=== PATIENT | male | born 1965 | race Two or more races ===

== ENCOUNTER 2025-02-02 14:06 | Emergency (ER) | payer MEDICARE ==
[~2025-02-02] VITALS: Ht 193 cm; Wt 86.2 kg
[2025-02-02 14:41] LABS: CALCIUM, SERUM 8.6 mg/dL (8.5-10.1); CARBON DIOXIDE 24 mmol/L (21-32); CHLORIDE 109 mmol/L (98-107); CREATININE 1.1 mg/dL (0.6-1.3); GLUCOSE 125 mg/dL (74-106); POTASSIUM 4.1 mmol/L (3.5-5.1); SODIUM SERUM 145 mmol/L (136-145); UREA NITROGEN, BLOOD 51 mg/dL (7-18)
[2025-02-02 14:50] LABS: BASOPHILS # (AUTO) 0.1 K/uL (0.0-0.2); BASOPHILS % (AUTO) 0.8 % (0.0-2.0); EOSINOPHILS % (AUTO) 0.3 % (0.0-6.0); HEMATOCRIT 27 % (39-51); LYMPHOCYTES # (AUTO) 0.7 K/uL (0.8-4.8); LYMPHOCYTES % (AUTO) 6.9 % (20.0-44.0); MEAN CORPUSCULAR HEMOGLOBIN 28 PG (26.0-33.0); MEAN CORPUSCULAR HGB CONC 33 g/dl (31.0-36.0); MEAN CORPUSCULAR VOLUME 84 fL (80-96); MONOCYTES # (AUTO) 0.3 K/uL (0.1-1.30); MONOCYTES % (AUTO) 3.2 % (2.0-12.0); NEUTROPHILS % (AUTO) 88.8 % (43.0-81.0); PLATELET COUNT (AUTO) 255 K/uL (150-450); RED BLOOD CELL COUNT(AUTO) 3.22 MIL/uL (4.5-6.0); WHITE BLOOD COUNT (AUTO) 10.2 K/uL (4.3-11.0)
[2025-02-02] MEDS ORDERED: FERR325T24 PO (17:18)
[2025-02-02] MEDS ORDERED: ASCO500C18 PO (17:18)
[2025-02-02 17:54] VITALS: BP 102/65; TEMP 98.5; O2SAT 99
== END 2025-02-02 17:55 | disposition home or self-care (01) ==
LOC: ER 14:09
DX: R07.89 Other chest pain (principal); D64.9 Anemia, unspecified; Z60.2 Problems related to living alone; Z88.0 Allergy status to penicillin; Z79.899 Other long term (current) drug therapy
CPT/HCPCS: 36415; 71045-TC; 80048-TC; 84484-TC; 85025-TC

== ENCOUNTER 2025-02-05 21:23 | Inpatient (IN) | payer MEDICARE ==
[~2025-02-05] VITALS: Ht 175.3 cm; Wt 82.6 kg
[~2025-02-05 21:23] MED LIST: ASCO500C18 PO; FERR325T24 PO
[2025-02-05 23:28] LABS: BASOPHILS % (AUTO) 0.6 % (0.0-2.0); EOSINOPHILS % (AUTO) 1.3 % (0.0-6.0); HEMATOCRIT 21 % (39-51); HEMOGLOBIN 6.7 g/dL (13.5-17.5); LYMPHOCYTES # (AUTO) 0.5 K/uL (0.8-4.8); LYMPHOCYTES % (AUTO) 14.2 % (20.0-44.0); MEAN CORPUSCULAR HEMOGLOBIN 28 PG (26.0-33.0); MEAN CORPUSCULAR HGB CONC 33 g/dl (31.0-36.0); MEAN CORPUSCULAR VOLUME 85 fL (80-96); MONOCYTES # (AUTO) 0.1 K/uL (0.1-1.30); MONOCYTES % (AUTO) 3.9 % (2.0-12.0); NEUTROPHILS # (AUTO) 2.8 K/uL (1.8-8.9); PLATELET COUNT (AUTO) 210 K/uL (150-450); RED BLOOD CELL COUNT(AUTO) 2.42 MIL/uL (4.5-6.0); RED CELL DISTRIBUTION WIDTH 17.5 % (11.5-15.0); WHITE BLOOD COUNT (AUTO) 3.5 K/uL (4.3-11.0)
[2025-02-05 23:36] LABS: CALCIUM, SERUM 7.9 mg/dL (8.5-10.1); POTASSIUM 3.5 mmol/L (3.5-5.1)
[2025-02-05 23:42] LABS: ALBUMIN 3.2 g/dL (3.4-5.0); BILIRUBIN,TOTAL 0.2 mg/dL (0.2-1.0); TOTAL PROTEIN, SERUM 5.9 g/dL (6.4-8.2)
[2025-02-05] MEDS: IV NS 0.9% 1,000 ML IV ONE (23:43)
[2025-02-06] VITALS (9 sets, daily range): BP systolic 90–109; BP diastolic 56–68; TEMP 97.1–98.6; O2SAT 99–100
[2025-02-06] LABS: ANISOCYTOSIS 1+; EOSINOPHILS % (MANUAL) 1 % (0-4); LYMPHOCYTES % (MANUAL) 10 % (16-48); MONOCYTES % (MANUAL) 7 % (0-11.0); NEUTROPHILS % (MANUAL) 82 (42-76); PLATELET ESTIMATE ADEQUATE
[2025-02-06] MEDS ORDERED: PANTOPRAZOLE 40 MG VIAL ONE (00:19)
[2025-02-06] MEDS: PANTOPRAZOLE 40 MG VIAL IV ONE (00:29)
[2025-02-06 01:05] LABS: INR 1.08 (0.91-1.10); PARTIAL THROMBOPLASTIN TIME 27.9 SEC (24.3-34.3); PROTHROMBIN TIME 11.4 SECS (9.2-11.1)
[2025-02-06] MEDS ORDERED: LORAZEPAM 1 MG TABLET PO PRN (01:30)
[2025-02-06] MEDS ORDERED: HYDROCODONE/APAP 5/325MG TABLET PO PRN (01:30)
[2025-02-06] MEDS ORDERED: ONDANSETRON HCL/PF 4 MG/2 ML VIAL IVP PRN (01:30)
[2025-02-06] MEDS ORDERED: ZOLPIDEM TARTRATE 5 MG TABLET PO PRN (01:30)
[2025-02-06] MEDS ORDERED: Z GUARD REMEDY 4 OZ OINT TP PRN (01:30)
[2025-02-06 01:32] LABS: APPEARANCE,URINE CLEAR (CLEAR); BILIRUBIN,URINE NEGATIVE (NEGATIVE); BLOOD, URINE NEGATIVE Ery/uL (NEGATIVE); COLOR,URINE YELLOW (YELLOW); KETONES,URINE TRACE mg/dL (NEGATIVE); LEUKOCYTE ESTERASE ,URINE NEGATIVE (NEGATIVE); NITRITE, URINE NEGATIVE (NEGATIVE); PH,URINE 5.5 (5.0-8.0); PROTEIN,URINE NEGATIVE (NEGATIVE); UGLUCOSE NEGATIVE (NEGATIVE); UROBILINOGEN,URINE 0.2 EU/dL (0.2)
[2025-02-06 01:40] LABS: AMPHETAMINE, URINE NEGATIVE (NEGATIVE); BARBITURATE, URINE NEGATIVE (NEGATIVE); BENZODIAZEPINE, URINE NEGATIVE (NEGATIVE); CANNABINOID, URINE NEGATIVE (NEGATIVE); COCCAINE, URINE NEGATIVE (NEGATIVE); OPIATE, URINE NEGATIVE (NEGATIVE); PHENCYCLIDINE SCREEN,URINE NEGATIVE (NEGATIVE)
[2025-02-06 01:52] LABS: ADD URINE CULTURE NO; BACTERIA,URINE Rare /HPF (None Seen); RBC,URINE 0-2 /HPF (0-2); SQUAMOUS EPITHELIAL CELL,UR Few /HPF (None Seen); WBC,URINE 0-2 /HPF (0-3)
[2025-02-06] MEDS: IV NS 0.9% 1,000 ML IV PRN (03:40)
[2025-02-06] MEDS: PANTOPRAZOLE 40 MG VIAL IV SCH (09:34)
[2025-02-06] MEDS ORDERED: PANT40TA49 PO (10:00)
[2025-02-06] MEDS ORDERED: ACET-1951 PO (10:00)
[2025-02-06] MEDS ORDERED: SUCR1TAB PO (10:00)
[2025-02-06] MEDS ORDERED: SERT25TA5 PO (10:00)
[2025-02-06] MEDS ORDERED: ACET500C4 PO (10:00)
[2025-02-06] MEDS ORDERED: IBUP-2413 PO (10:00)
[2025-02-06] MEDS ORDERED: FERR325T24 PO (10:00)
[2025-02-06] MEDS: CHLORDIAZEPOXIDE HCL 25 MG CAPSULE PO SCH (10:14)
[2025-02-06] MEDS: IV NS 0.9% 1,000 ML IV SCH (11:30)
[2025-02-06 18:59] LABS: HEMOGLOBIN 8.1 g/dL (13.5-17.5)
[2025-02-07 02:22] LABS: HEMOGLOBIN 7.9 g/dL (13.5-17.5)
[2025-02-07 04:00] VITALS: BP 109/62; TEMP 97.9; O2SAT 98
[2025-02-07 06:35] LABS: INR 1.08 (0.91-1.10); PARTIAL THROMBOPLASTIN TIME 29.1 SEC (24.3-34.3); PROTHROMBIN TIME 11.4 SECS (9.2-11.1)
[2025-02-07 06:42] LABS: CREATININE 0.9 mg/dL (0.6-1.3); MAGNESIUM 1.8 mg/dL (1.8-2.4); PHOSPHORUS 3.4 mg/dL (2.5-4.9); POTASSIUM 3.5 mmol/L (3.5-5.1)
[2025-02-07 06:51] LABS: BASOPHILS % (AUTO) 0.5 % (0.0-2.0); EOSINOPHILS # (AUTO) 0.2 K/uL (0.0-0.7); EOSINOPHILS % (AUTO) 3.4 % (0.0-6.0); HEMATOCRIT 25 % (39-51); HEMOGLOBIN 8.5 g/dL (13.5-17.5); LYMPHOCYTES # (AUTO) 0.7 K/uL (0.8-4.8); LYMPHOCYTES % (AUTO) 14.6 % (20.0-44.0); MEAN CORPUSCULAR HEMOGLOBIN 29 PG (26.0-33.0); MEAN CORPUSCULAR HGB CONC 34 g/dl (31.0-36.0); MEAN CORPUSCULAR VOLUME 86 fL (80-96); MONOCYTES # (AUTO) 0.4 K/uL (0.1-1.30); MONOCYTES % (AUTO) 7.9 % (2.0-12.0); NEUTROPHILS # (AUTO) 3.7 K/uL (1.8-8.9); NEUTROPHILS % (AUTO) 73.6 % (43.0-81.0); PLATELET COUNT (AUTO) 215 K/uL (150-450); RED BLOOD CELL COUNT(AUTO) 2.95 MIL/uL (4.5-6.0); RED CELL DISTRIBUTION WIDTH 16.7 % (11.5-15.0); WHITE BLOOD COUNT (AUTO) 5.1 K/uL (4.3-11.0)
[2025-02-07 08:00] VITALS: BP 115/60; TEMP 98.1; O2SAT 98
[2025-02-07] MEDS: SERTRALINE HCL 25 MG TABLET PO SCH (09:00)
[2025-02-07] MEDS: SUCRALFATE 1 G TABLET PO SCH (09:00)
[2025-02-07] MEDS: FERROUS SULFATE (325 MG) 325 MG/TAB TABLET PO SCH (09:00)
[2025-02-07 10:20] LABS: HEMOGLOBIN 8.5 g/dL (13.5-17.5)
[2025-02-07] MEDS ORDERED: MIDAZOLAM HCL 2 MG/2ML VIAL ONE (11:19)
[2025-02-07 12:30] VITALS: BP 104/70; O2SAT 95
[2025-02-07 15:55] VITALS: BP 101/55; TEMP 97.9; O2SAT 97
[2025-02-07 18:29] LABS: HEMOGLOBIN 8.7 g/dL (13.5-17.5)
[2025-02-07 20:00] VITALS: BP 109/60; TEMP 98.6; O2SAT 96
[2025-02-08 02:19] LABS: HEMOGLOBIN 8.8 g/dL (13.5-17.5)
[2025-02-08 04:00] VITALS: BP 96/63; TEMP 97.9; O2SAT 98
[2025-02-08 06:38] LABS: BASOPHILS % (AUTO) 0.4 % (0.0-2.0); EOSINOPHILS # (AUTO) 0.3 K/uL (0.0-0.7); EOSINOPHILS % (AUTO) 5.1 % (0.0-6.0); HEMATOCRIT 27 % (39-51); HEMOGLOBIN 9.1 g/dL (13.5-17.5); LYMPHOCYTES % (AUTO) 19.8 % (20.0-44.0); MEAN CORPUSCULAR HEMOGLOBIN 29 PG (26.0-33.0); MEAN CORPUSCULAR HGB CONC 34 g/dl (31.0-36.0); MEAN CORPUSCULAR VOLUME 86 fL (80-96); MONOCYTES # (AUTO) 0.5 K/uL (0.1-1.30); MONOCYTES % (AUTO) 9.1 % (2.0-12.0); NEUTROPHILS # (AUTO) 3.3 K/uL (1.8-8.9); NEUTROPHILS % (AUTO) 65.6 % (43.0-81.0); PLATELET COUNT (AUTO) 245 K/uL (150-450); RED BLOOD CELL COUNT(AUTO) 3.14 MIL/uL (4.5-6.0); RED CELL DISTRIBUTION WIDTH 16.9 % (11.5-15.0)
[2025-02-08 08:00] VITALS: BP 113/72; TEMP 97.9; O2SAT 99
[2025-02-08] MEDS: PANTOPRAZOLE 40 MG TABLET.DR PO SCH (09:25)
[2025-02-08] MEDS: ACETAMINOPHEN 325 MG TABLET PO PRN (09:42)
[2025-02-08 10:01] LABS: HEMOGLOBIN 9.2 g/dL (13.5-17.5)
[2025-02-08 12:00] VITALS: BP 113/72; TEMP 97.9; O2SAT 99
[2025-02-08 16:00] VITALS: BP 101/65; TEMP 97.7; O2SAT 98
[2025-02-08] MEDS: NYSTATIN CREAM 15 GM TUBE TP SCH (16:34)
[2025-02-08 18:54] LABS: HEMOGLOBIN 9.5 g/dL (13.5-17.5)
[2025-02-08 20:00] VITALS: BP 105/71; TEMP 97.9; O2SAT 94
[2025-02-09 02:18] LABS: HEMOGLOBIN 9.3 g/dL (13.5-17.5)
[2025-02-09 04:00] VITALS: BP 99/68; TEMP 97.7; O2SAT 95
[2025-02-09 07:13] LABS: BASOPHILS % (AUTO) 0.7 % (0.0-2.0); EOSINOPHILS # (AUTO) 0.3 K/uL (0.0-0.7); EOSINOPHILS % (AUTO) 6.7 % (0.0-6.0); HEMATOCRIT 30 % (39-51); HEMOGLOBIN 9.7 g/dL (13.5-17.5); LYMPHOCYTES # (AUTO) 1.2 K/uL (0.8-4.8); LYMPHOCYTES % (AUTO) 22.6 % (20.0-44.0); MEAN CORPUSCULAR HEMOGLOBIN 28 PG (26.0-33.0); MEAN CORPUSCULAR HGB CONC 33 g/dl (31.0-36.0); MEAN CORPUSCULAR VOLUME 87 fL (80-96); MONOCYTES # (AUTO) 0.5 K/uL (0.1-1.30); MONOCYTES % (AUTO) 9.5 % (2.0-12.0); NEUTROPHILS # (AUTO) 3.1 K/uL (1.8-8.9); NEUTROPHILS % (AUTO) 60.5 % (43.0-81.0); PLATELET COUNT (AUTO) 278 K/uL (150-450); RED BLOOD CELL COUNT(AUTO) 3.42 MIL/uL (4.5-6.0); RED CELL DISTRIBUTION WIDTH 16.7 % (11.5-15.0); WHITE BLOOD COUNT (AUTO) 5.2 K/uL (4.3-11.0)
[2025-02-09 08:00] VITALS: BP 105/73; TEMP 97.9; O2SAT 99
[2025-02-09 10:44] LABS: HEMOGLOBIN 9.9 g/dL (13.5-17.5)
[2025-02-09 12:00] VITALS: BP 105/73; TEMP 97.9; O2SAT 99
== END 2025-02-09 12:49 | DRG 897 ==
LOC: ER 21:24 → TELE1 02-06 01:28 → MEDSG1 02-06 01:53
PROVIDERS: ADMIT Internal Medicine; ATTEND Nurse Practitioner Acute Care
PROC: 0HBRXZZ Excision of Toe Nail, External Approach (ICD-10-PCS; principal; 2025-02-06)
PROC: 30233N1 Transfusion of Nonautologous Red Blood Cells into Peripheral Vein, Percutaneous Approach (ICD-10-PCS; 2025-02-06)
PROC: 0DB68ZX Excision of Stomach, Via Natural or Artificial Opening Endoscopic, Diagnostic (ICD-10-PCS; 2025-02-07)
PROC: 009U3ZX Drainage of Spinal Canal, Percutaneous Approach, Diagnostic (ICD-10-PCS; 2025-02-08)
DX: F10.129 Alcohol abuse with intoxication, unspecified (principal); D62 Acute posthemorrhagic anemia; Z59.00 Homelessness unspecified; E87.20 Acidosis, unspecified; K29.70 Gastritis, unspecified, without bleeding; F41.9 Anxiety disorder, unspecified; L60.3 Nail dystrophy; Z88.0 Allergy status to penicillin; Z79.899 Other long term (current) drug therapy; Y90.6 Blood alcohol level of 120-199 mg/100 ml; B35.1 Tinea unguium; K44.9 Diaphragmatic hernia without obstruction or gangrene; S90.424A Blister (nonthermal), right lesser toe(s), initial encounter; S90.822A Blister (nonthermal), left foot, initial encounter; X58.XXXA Exposure to other specified factors, initial encounter; Y92.9 Unspecified place or not applicable
CPT/HCPCS: 36415; 71045-TC; 80048-TC; 80053-TC; 81001; 82962-TC; 83735-TC; 84100-TC; 85025-TC; 85027-TC; 85610-TC; 85730-TC; 86850-TC; 87081-TC; 97116-TC; 97530-TC; A4223; G0378; G0480; J2250; J2470; J2704; J3490; J7030; J7040; P9016